=== PATIENT | female | born 1955 | race Caucasian/White ===

== ENCOUNTER 2017-02-16 09:07 | Day surgery (SDC) | payer BC ==
[2017-02-14 09:42] VITALS: BMI 31.3
[~2017-02-16 09:07] MED LIST: LACTATED RINGERS 1,000 ML IV SCH
[2017-02-16 09:36] VITALS: TEMP 97.7
[2017-02-16] MEDS ORDERED: LIDOCAINE 1% 20 ML VIAL (10MG/ML) FOR IV START INTRADERMA ONE (09:36)
[2017-02-16] MEDS ORDERED: PROPOFOL 10 MG/ML 20 ML VIAL IV ONE (09:38)
--- NOTE | 2017-02-16 09:40 | P.GSHP ---
History of Present Illness H&P Date: 02/16/17 Chief Complaint: Screening colonoscopy This is a 59-year-old female referred from Dr. Castro. Patient rents today for screening colonoscopy. She denies a significant GI complaints. 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 Past Anesthesia/Blood Transfusion Reactions: No Reported Reaction Smoking Status: Current every day smoker Past Alcohol Use History: Rare Additional Past Alcohol Use History / Comment(s): smoker for 25 years <1/2ppd Past Drug Use History: None Reported - Past Family History Brother(s) Family Medical History: Cancer Additional Family Medical History / Comment(s): colon cancer Medications and Allergies Home Medications Medication Instructions Recorded Confirmed Type Atorvastatin [Lipitor] 20 mg PO DAILY 02/14/17 02/14/17 History Calcium Carbonate [Calcium] 600 mg PO DAILY 02/14/17 02/14/17 History Cholecalciferol [Vitamin D3] 2,000 unit PO DAILY 02/14/17 02/14/17 History Pantoprazole Sodium [Protonix] 40 mg PO DAILY 02/14/17 02/14/17 History Allergies Allergy/AdvReac Type Severity Reaction Status Date / Time No Known Allergies Allergy Verified 02/16/17 09:15 Surgical - Exam Vital Signs Temp Pulse Resp BP Pulse Ox 97.7 F 68 16 187/89 98 02/16/17 09:34 02/16/17 09:34 02/16/17 09:34 02/16/17 09:34 02/16/17 09:34 - General well developed, well nourished, no distress - Eyes PERRL - ENT normal pinna - Neck no masses - Respiratory normal expansion - Cardiovascular Rhythm: regular - Abdomen Abdomen: soft, non tender Assessment and Plan Plan: We'll perform screening colonoscopy.
--- NOTE | 2017-02-16 09:53 | P.OP ---
Date of Procedure: 02/16/17 Preoperative Diagnosis: Screening colonoscopy Postoperative Diagnosis: Diverticulosis Sigmoid colon polyp Cecal polyp Procedure(s) Performed: Colonoscopy Anesthesia: MAC Surgeon: Nino Urias Pathology: other (Sigmoid colon, cecum) Condition: stable Disposition: PACU Description of Procedure: The patient's placed on the endoscopy table in the lateral position. She received IV sedation. Digital rectal exam was performed which revealed no abnormalities. The flexible colonoscope was then placed patient anus and passed throughout the entire colon. The ileocecal valve visualized. The cecum there was a small sessile polyp. This was removed with a forcep. Scope was then withdrawn and the remainder the ascending colon, transverse colon and descending colon appeared normal. In the sigmoid colon there is diverticular changes. There is also another polyp seen this removed the forcep. The scope was then brought back the rectum and this appeared normal. Scope was withdrawn for patient.
[2017-02-16 10:14] VITALS: BP 124/74; PULSE 68; RESP 18
== END 2017-02-16 10:28 | disposition home or self-care (01) ==
LOC: ORWHC2ENDO 09:07
PROVIDERS: ATTEND Surgery
DX: Z12.11 Encounter for screening for malignant neoplasm of colon (principal); D12.0 Benign neoplasm of cecum; K63.5 Polyp of colon; K57.30 Diverticulosis of large intestine without perforation or abscess without bleeding; Z80.0 Family history of malignant neoplasm of digestive organs; K21.9 Gastro-esophageal reflux disease without esophagitis; E78.5 Hyperlipidemia, unspecified; Z79.899 Other long term (current) drug therapy; F17.200 Nicotine dependence, unspecified, uncomplicated
CPT/HCPCS: 88305; 45380; J2704

== ENCOUNTER 2017-12-08 09:13 | Day surgery (SDC) | payer BC ==
[2017-12-06 10:51] VITALS: BMI 28.1
[~2017-12-08 09:13] MED LIST changes: +LIDOCAINE 1% 20 ML VIAL (10MG/ML) FOR IV START INTRADERMA PRN
[2017-12-08 10:52] VITALS: RESP 16; TEMP 97.7
[2017-12-08] MEDS ORDERED: fentaNYL (PF) 50 MCG/ML 2 ML AMP ONE (11:06)
[2017-12-08] MEDS ORDERED: MIDAZOLAM 2 MG/2 ML VIAL ONE (11:06)
[2017-12-08] MEDS ORDERED: PROPOFOL 10 MG/ML 20 ML VIAL IV ONE (11:06)
--- NOTE | 2017-12-08 11:16 | P.PCN ---
Date of Procedure: 12/08/17 Procedure(s) Performed: BRIEF HISTORY: Patient is a 62-year-old, pleasant, white female, scheduled for an upper endoscopy as a part of evaluation of long-standing history of heartburn /gastroesophageal reflux disease and lately has been having intermittent dysphagia to solids.. PROCEDURE PERFORMED: Esophagogastroduodenoscopy with biopsy. PREOPERATIVE DIAGNOSIS: Long-standing history of GERD/intermittent dysphagia to solids and. IV sedation per anesthesia. PROCEDURE: After informed consent was obtained, the patient was brought into the endoscopy unit. IV sedation was administered by Anesthesia under continuous monitoring. Initially the Olympus GIF-140 video endoscope was inserted into the mouth. Esophagus intubated without any difficulty. It was gradually advanced into the stomach and duodenum and carefully examined. The bulb and the second part of the duodenum appeared normal. The scope at this time was withdrawn to the stomach, adequately insufflated with air, and upon careful examination, mucosa of the antrum had mild gastritis and biopsies were done from this area. The, body, cardia and the fundus appeared normal. The scope was then withdrawn into the esophagus. Moderate size hiatal hernia noted. The GE junction was located at 35 cm from the incisors. The esophagus appeared normal. There were no erosions or ulcerations seen , no evidence of esophageal stricture and the patient tolerated the procedure well. IMPRESSION: 1. Mild antral gastritis . 2. Moderate size hiatal hernia. 3. No evidence of esophagitis or esophageal stricture. RECOMMENDATIONS: The findings of this examination were discussed with the patient as well as her family. She was advised to continue with Protonix 40 mg daily and follow antireflux measures..
[2017-12-08 11:51] VITALS: BP 143/87; PULSE 60
== END 2017-12-08 12:02 | disposition home or self-care (01) ==
LOC: ORWHC2ENDO 09:13
PROVIDERS: ATTEND Internal Medicine Gastroenterology
DX: K29.50 Unspecified chronic gastritis without bleeding (principal); K44.9 Diaphragmatic hernia without obstruction or gangrene; K21.0 Gastro-esophageal reflux disease with esophagitis; E78.5 Hyperlipidemia, unspecified; Z79.82 Long term (current) use of aspirin; Z79.899 Other long term (current) drug therapy
CPT/HCPCS: 88305; 43239; J2250; J3010; J2704

== ENCOUNTER → 2022-11-07 | Outpatient (CLI) | payer MEDICARE, BC ==
[2022-11-07 13:00] LABS: HCT 42.8 % (34.0-46.0); HGB 14.7 gm/dL (11.4-16.0); MCH 31.7 pg (25.0-35.0); MCHC 34.4 g/dL (31.0-37.0); MCV 92.2 fL (80.0-100.0); Mean Platelet Volume 8.8; Platelet Count 198 k/uL (150-450); RBC 4.64 m/uL (3.80-5.40); RDW 12.4 % (11.5-15.5); WBC 6.5 k/uL (3.8-10.6)
[2022-11-07 13:11] LABS: INR 0.9 (<1.2); Partial Thromboplastin Time 24.3 sec (22.0-30.0); Prothrombin Time 9.9 sec (9.0-12.0)
[2022-11-07 13:18] LABS: Albumin 4.3 g/dL (3.5-5.0); Potassium 4.1 mmol/L (3.5-5.1); Total Bilirubin 0.6 mg/dL (0.2-1.3)
[2022-11-07 13:31] LABS: Appearance,Urine Cloudy (Clear); Bacteria,Urine Many /hpf; Bilirubin,Urine Negative (Negative); Blood,Urine Negative (Negative); Color,Urine Yellow; Glucose,Urine (UA) Negative (Negative); Hyaline Casts,Urine 18 /lpf (0-2); Ketones,Urine Negative (Negative); Leukocyte Esterase,Urine Moderate (Negative); Mucus,Urine Many /hpf; Nitrite,Urine Negative (Negative); Protein,Urine Trace (Negative); RBC,Urine 3 /hpf (0-5); Specific Gravity,Urine 1.019 (1.001-1.035); Squamous Epithelial Cell,Urine 4 /hpf (0-4); Urobilinogen,Urine <2.0 mg/dL (<2.0); WBC,Urine 16 /hpf (0-5)
== END | disposition home or self-care (01) ==
LOC: LAB 11:55 → LABWHC1 11:55
PROVIDERS: ATTEND Orthopaedic Surgery
DX: Z01.812 Encounter for preprocedural laboratory examination (principal); M16.11 Unilateral primary osteoarthritis, right hip
CPT/HCPCS: 80053; 81001; 85027; 85610; 85730; 87070

== ENCOUNTER → 2023-03-01 | Outpatient (CLI) | payer MEDICARE, BC ==
--- NOTE | 2023-03-02 13:59 | US ---
EXAMINATION TYPE: US arterial LE multi level DATE OF EXAM: 03/01/2023 2:40 PM CLINICAL INDICATION: Female, 67 years old with history of R20.2 PARESTHESIA OF SKIN; right total hip replacement 2 months ago, tingling in right leg and foot, purple in color at times History of: Smoker: previous Hypertension: No Diabetic: No Hyperlipidemia: Yes TIA/CVA: No Previous Vascular Surgery: No CAD: No PR: No Vascular Ulcers: No Claudication: No Gangrene: No Doppler Waveforms: Right: Multiphasic Left: Multiphasic Right Brachial Pressure: 174 Left Brachial Pressure: 169 Ankle-Brachial Indices: Right: 1.0 Left: 1.0 Toe Brachial Indices: Right: 0.55 Left: 0.6 IMPRESSION: Diminished right sided TBI consistent with at least mild peripheral arterial disease in the right foot.
== END | disposition home or self-care (01) ==
LOC: RADUSWWP 13:51
PROVIDERS: ATTEND Family Medicine
DX: E78.5 Hyperlipidemia, unspecified (principal); R20.2 Paresthesia of skin; Z87.891 Personal history of nicotine dependence; Z96.641 Presence of right artificial hip joint
CPT/HCPCS: 93923